=== PATIENT | female | born 1965 | race Caucasian/White ===

== ENCOUNTER 2018-06-21 09:28 | Observation (INO) | payer MEDICARE ==
[~2018-06-21] VITALS: Ht 172.7 cm; Wt 109.3 kg
[2018-06-21] MEDS ORDERED: ASPIRIN 81 MG CHEW TAB PO ONE ×2 (09:30→11:15)
[2018-06-21 10:05] LABS: BASOPHILS % 0.4 % (0.0-1.0); EOSINOPHILS % 0.9 % (0.0-6.0); HEMOGLOBIN 13.2 g/dL (12.0-16.0); LYMPHOCYTES # (AUTO) 1.4 (1.0-3.2); MEAN CORPUSCULAR HEMOGLOBIN 28.1 pg (28-32); MEAN CORPUSCULAR VOLUME 85.1 fL (81-99); MONOCYTES # (AUTO) 0.3 (0.2-0.8); MONOCYTES % 5.9 % (4.4-11.3); NEUTROPHILS # (AUTO) 2.8 (2.1-6.9); NEUTROPHILS % 62.4 % (38.7-80.0); PLATELET COUNT 182 x10e3/uL (140-360); RED CELL DISTRIBUTION WIDTH 13.4 % (11.7-14.4)
[2018-06-21 10:15] LABS: INR 0.98; PROTHROMBIN TIME 12.2 seconds (11.9-14.5)
[2018-06-21] MEDS ORDERED: NITROGLYCERIN 2% OINT 1 GM PKT TOP ONE (10:15)
[2018-06-21 10:16] LABS: PARTIAL THROMBOPLASTIN TIME 34.3 seconds (23.8-35.5)
[2018-06-21 10:26] LABS: ALBUMIN 3.9 g/dL (3.5-5.0); ANION GAP 13.3 mmol/L (8-16); CALCIUM 10.1 mg/dL (8.4-10.2); CREATININE, SERUM 1.07 mg/dL (0.57-1.11); MAGNESIUM 1.7 MG/DL (1.3-2.1); POTASSIUM 3.3 mmol/L (3.5-5.1)
--- NOTE | 2018-06-21 10:28 | Diagnostic Imaging Report ---
PROCEDURE: CHEST SINGLE (PORTABLE) COMPARISON: None. INDICATIONS: CHEST TIGHTNESS FINDINGS: LUNGS: No consolidations or edema. PLEURA: No effusions or pneumothorax. HEART \T\ MEDIASTINUM: The heart is within normal size-limits. BONES \T\ SOFT TISSUES: No acute findings. CONCLUSION: No acute thoracic abnormality. Ramin Doe D.O. Dictated by: Ramin Doe D.O. on 06/21/2018 at 10:33 Electronically approved by: Ramin Doe D.O. on 06/21/2018 at 10:33
[2018-06-21 10:32] LABS: CREATINE KINASE MB 0.9 ng/mL (0-5.0)
[2018-06-21] MEDS ORDERED: ACETAMINOPHEN 325 MG TAB PO ONE (12:00)
[2018-06-21 12:27] VITALS: BP 103/52
[2018-06-21 12:44] VITALS: BP 103/52
[2018-06-21 12:57] VITALS: BP 126/83
[2018-06-21 15:11] VITALS: BP 130/78
[2018-06-21 16:51] LABS: CHOL/HDL RATIO 3.8 (3.0-3.6)
--- NOTE | 2018-06-21 16:58 | Consultation ---
DATE OF CONSULTATION: June 21, 2018 CARDIOLOGY CONSULTATION REQUESTING PHYSICIAN: Dr. Shan Chavez. REASON FOR CONSULTATION: Chest pain. HISTORY OF PRESENT ILLNESS: This is a 52-year-old woman with history of hypertension and venous insufficiency status post right GSV ablation, who presented with complaints of elevated blood pressure and chest pain. The patient reports that she has not been taking her blood pressure medicines for some time. Two weeks ago she noticed her left leg began to swell when she was seated for a prolonged period of time. Last week she then began to experience headaches. She checked her blood pressure and found it was elevated; so, she resumed her blood pressure medications. She states her blood pressure had been running high in the 190s at home. Yesterday she then developed dull chest pain 2 to 3 out of 10 in severity that was constant, associated with shortness of breath, nausea and diaphoresis. The pain did not radiate. However, she then developed chest pressure yesterday evening that was 6 to 7 out of 10 in severity and progressively worsened overnight. She therefore presented to the ER for further evaluation. REVIEW OF SYSTEMS: Negative except as per HPI. PAST MEDICAL HISTORY 1. Hypertension. 2. Venous insufficiency. PAST SURGICAL HISTORY 1. Gastroplasty. 2. Appendectomy. 3. Tubal ligation. 4. Cholecystectomy. 5. Hysterectomy. 6. Neck and back surgery. 7. Tonsillectomy. FAMILY HISTORY: Pertinent for a mother with heart failure and atrial fibrillation. SOCIAL HISTORY: No tobacco, alcohol or illicit drugs. ALLERGIES: PLEASE SEE EMR. MEDICATIONS: Please see medication list. PHYSICAL EXAMINATION VITAL SIGNS: Temperature 97.8 degrees, pulse 64, respiratory rate 20, blood pressure 130/78, oxygen saturation 98% on room air. GENERAL: Obese woman in no acute distress. Well developed, well nourished. HEENT: Normocephalic, atraumatic. Pupils equal, no scleral icterus. NECK: Supple. No thyromegaly or cervical lymphadenopathy, no carotid bruits. LUNGS: Clear to auscultation bilaterally. No wheezes or crackles. CARDIOVASCULAR: Normal rate, regular rhythm. No murmur. Normal S1 and S2. ABDOMEN: Soft, nontender. EXTREMITIES: No edema. Palpable distal pulses. NEURO: Nonfocal exam. LABS: WBC 4.56, hemoglobin 13.2, hematocrit 40, platelets 182. Sodium 142, potassium 3.3, chloride 104, CO2 28, BUN 12, creatinine 1.07. Troponin 0.007. ELECTROCARDIOGRAM: Normal sinus rhythm. Normal ECG. ECHO: The patient's prior echocardiogram in January had normal LV size and systolic function with moderate concentric LVH and pseudonormal LV filling consistent with elevated LA pressure. Estimated RVSP was 30 mmHg assuming RA pressure of 3 mmHg. CHEST X-RAY: No acute thoracic abnormality. IMPRESSION 1. Chest pain. 2. Hypertension, uncontrolled. 3. Venous insufficiency status post right greater saphenous vein ablation. RECOMMENDATIONS: Trend cardiac enzymes. Given risk factors, ischemic evaluation is warranted with nuclear stress test. Will resume Losartan. Monitor creatinine. Thank you for this consult. We will continue to follow. Job#: [id number] EV MTDD
[2018-06-21] MEDS: ACETAMINOPHEN 325 MG TAB PO PRN ×2 (18:57→20:41)
[2018-06-21 20:00] VITALS: BP 97/60
[2018-06-21 20:59] LABS: CREATINE KINASE 82 IU/L (29-168)
[2018-06-21 21:29] VITALS: BP 97/60
[2018-06-22] VITALS (7 sets, daily range): BP systolic 119–142; BP diastolic 64–75
[2018-06-22 05:52] LABS: CREATINE KINASE 75 IU/L (29-168)
[2018-06-22 06:11] LABS: CHOL/HDL RATIO 4.4 (3.0-3.6)
[2018-06-22] MEDS ORDERED: REGADENOSON 0.4 MG/5 ML SYR IV ONE (08:10)
[2018-06-22] MEDS: ASPIRIN 81 MG ENTERIC COATED PO SCH (09:00)
[2018-06-22] MEDS ORDERED: NITROGLYCERIN 0.4 MG PATCH TOP SCH (09:00)
[2018-06-22] MEDS: LOSARTAN POTASSIUM 25 MG TAB PO SCH (09:00)
--- NOTE | 2018-06-22 12:44 | Progress Note ---
DATE: June 22, 2018 CARDIOLOGY PROGRESS NOTE SUBJECTIVE: Patient is complaining of a little chest pain and shortness of breath. She was seen for nuclear stress test. OBJECTIVE VITAL SIGNS: Temperature 97.6 degrees, pulse 57, respiratory rate 18, blood pressure 128/74, oxygen saturation 97% on room air. GENERAL: Obese woman, awake and alert, in no acute distress. LUNGS: Clear to auscultation bilaterally. No wheezes or crackles. CARDIOVASCULAR: Normal rate, regular rhythm. No murmur. Normal S1 and S2. ABDOMEN: Soft, nontender. EXTREMITIES: No edema. CARDIAC MEDICATIONS 1. Losartan 25 mg p.o. daily. 2. Aspirin 81 mg p.o. daily. LABORATORY DATA: Cholesterol 171, triglyceride 145, LDL 103, HDL 39, troponin less than 0.001. TELEMETRY: Normal sinus rhythm. IMPRESSION 1. Chest pain. 2. Hypertension. 3. Venous insufficiency, status post right great saphenous vein ablation. RECOMMENDATIONS: Patient is ruled out for myocardial infarction with serial cardiac biomarkers. Ischemic evaluation with nuclear stress test has been performed. We will review the images once they are available. Further recommendations to follow. Monitor blood pressure closely with resumption of losartan. Thank you for this consult. We will continue to follow. Job#: [id number] DIPIKA
--- NOTE | 2018-06-22 14:35 | Cardiology Report ---
DATE OF STUDY: June 22, 2018 NUCLEAR STRESS TEST INDICATIONS: Chest pain. PROCEDURE: The patient performed treadmill exercise using a Richard protocol, exercising for 3 minutes 19 seconds to stage 1 and completed an estimated workload of 4.6 metabolic equivalents (METs). The test was terminated due to fatigue. The heart rate was 65 beats per minute at rest and increased to 158 beats per minute at peak exercise, which was 93% of the maximum predicted heart rate. The rest blood pressure was 114/84 and increased to 148/91 mmHg, which is a normal response. The patient did not develop any symptoms other than fatigue during the procedure. The resting electrocardiogram demonstrated normal sinus rhythm. There were no ST segment changes consistent with myocardial ischemia. Next, myocardial perfusion imaging was performed at rest following the injection of 11 millicuries of tetrofosmin. At peak exercise, the patient was injected with 31.7 millicuries of tetrofosmin, and exercise was continued for 1 minute. Gated poststress tomographic imaging was performed. FINDINGS: The overall quality of the study is fair. Attenuation artefact is absent. The left ventricular cavity is noted to be normal size on the rest and stress studies. SPECT images demonstrate homogeneous tracer distribution throughout the myocardium. Gated SPECT imaging reveals normal myocardial thickening and wall motion. Left ventricular ejection fraction was calculated to be greater than 70%. Next, myocardial perfusion imaging is normal. Overall left ventricular systolic function was normal without regional wall motion abnormalities. Job#: [id number] EV cc:GRECIA MAYO MD
[2018-06-22] MEDS: ACETAMINOPHEN 325 MG TAB PO PRN (20:25)
[2018-06-23] VITALS: BP 128/84
[2018-06-23 04:00] VITALS: BP 129/65
[2018-06-23] MEDS: ACETAMINOPHEN 325 MG TAB PO PRN (04:38)
[2018-06-23 08:00] VITALS: BP 121/69
[2018-06-23 08:32] VITALS: BP 121/69
[2018-06-23] MEDS: ASPIRIN 81 MG ENTERIC COATED PO SCH (09:08)
[2018-06-23] MEDS: LOSARTAN POTASSIUM 25 MG TAB PO SCH (09:08)
--- NOTE | 2018-06-23 11:22 | Diagnostic Imaging Report ---
EXAMINATION: CHEST SINGLE (PORTABLE) INDICATION: CP and SOB COMPARISON: 06/21/18. FINDINGS: TUBES and LINES: None. LUNGS: Mild bibasilar subsegmental atelectasis. There is no evidence of pneumonia or pulmonary edema. PLEURA: No pleural effusion or pneumothorax. HEART AND MEDIASTINUM: The cardiomediastinal silhouette is unremarkable. BONES AND SOFT TISSUES: No acute osseous lesion. No cervical fusion hardware. UPPER ABDOMEN: No free air under the diaphragm. IMPRESSION: No acute thoracic abnormality. Signed by: Dr. Elena Mike M.D. on 06/23/2018 11:19 AM
[2018-06-23 11:28] LABS: BASOPHILS % 0.4 % (0.0-1.0); EOSINOPHILS % 0.5 % (0.0-6.0); HEMATOCRIT 37.4 % (34.2-44.1); HEMOGLOBIN 12.4 g/dL (12.0-16.0); LYMPHOCYTES # (AUTO) 1.5 (1.0-3.2); LYMPHOCYTES % 27.5 % (18.0-39.1); MEAN CORPUSCULAR HEMOGLOBIN 28.1 pg (28-32); MEAN CORPUSCULAR HGB CONC 33.2 g/dL (31-35); MEAN CORPUSCULAR VOLUME 84.8 fL (81-99); MONOCYTES # (AUTO) 0.4 (0.2-0.8); MONOCYTES % 6.3 % (4.4-11.3); NEUTROPHILS # (AUTO) 3.6 (2.1-6.9); NEUTROPHILS % 64.9 % (38.7-80.0); PLATELET COUNT 181 x10e3/uL (140-360); RED BLOOD COUNT 4.41 x10e6/uL (3.6-5.1); RED CELL DISTRIBUTION WIDTH 13.2 % (11.7-14.4)
[2018-06-23 11:32] VITALS: BP 135/71
[2018-06-23 11:33] VITALS: BP 135/71
[2018-06-23 11:47] LABS: ALANINE AMINOTRANSFERASE 17 IU/L (0-55); ALBUMIN 3.7 g/dL (3.5-5.0); ALBUMIN/GLOBULIN RATIO 1.1 (0.8-2.0); ALKALINE PHOSPHATASE 59 IU/L (40-150); BLOOD UREA NITROGEN 8 mg/dL (7-26); BUN/CREATININE RATIO 9 (6-25); CALCIUM 9.6 mg/dL (8.4-10.2); CARBON DIOXIDE 30 mmol/L (22-29); CHLORIDE 102 mmol/L (98-107); CREATININE, SERUM 0.93 mg/dL (0.57-1.11); EST GLOMERULAR FILTRATION RATE > 60 ML/MIN (60-); GLUCOSE 95 mg/dL (74-118); SODIUM 141 mmol/L (136-145)
[2018-06-23] MEDS ORDERED: LOSARTAN POTASS25 MG PO (13:45)
--- NOTE | 2018-06-24 04:52 | Progress Note ---
DATE: June 23, 2018 CARDIOLOGY PROGRESS NOTE SUBJECTIVE: Patient endorses some occasional chest pain, substernal and radiating to her right and some occasional shortness of breath. Denies any fever this morning. However, had fever. T-max of 101.6 last evening. CARDIOVASCULAR MEDICATIONS 1. Aspirin 81 mg. 2. Losartan 25 mg p.o. daily. LABS: No labs this morning. PHYSICAL EXAMINATION GENERAL: Alert and oriented times 3. Resting comfortably in bed. Does not appear to be in acute distress at this time. Undergoing echocardiogram this morning. LUNGS: Diminished breath sounds throughout right lower and right upper lobe. Otherwise clear to auscultation. No wheezing, rhonchi or crackles. CARDIOVASCULAR: Regular rate and rhythm. Normal S1 and S2. No S3 or S4 is auscultated. No gallop. No murmurs. ABDOMEN: Round, soft and nontender. EXTREMITIES: Lower extremities with 2+ pedal pulses. IMPRESSION 1. Atypical chest pain. 2. Hypertension. 3. Venous insufficiency, status post right greater saphenous vein ablation. RECOMMENDATIONS: With known fever from yesterday and also diminished breath sounds this morning, go ahead and repeat a chest x-ray this morning. Stress test yesterday was negative. Echocardiogram being completed this morning. Continue to monitor this patient. Monitor for reoccurrence of fever. Consider blood cultures if fevers are to continue. Will monitor this patient very closely. DICTATED BY WONG DAWKINS NP Job#: [id number] [place]
== END 2018-06-23 14:49 | disposition home or self-care (01) ==
LOC: ER 09:28 → ERHOLD 11:08 → IMCU 12:12
DX: R07.89 Other chest pain (principal); I10 Essential (primary) hypertension; I73.9 Peripheral vascular disease, unspecified; K21.9 Gastro-esophageal reflux disease without esophagitis; R50.9 Fever, unspecified
CPT/HCPCS: 36415 ×3; 71045 ×2; 78452; 80053 ×2; 80061 ×2; 82550 ×2; 82553 ×2; 83735; 84484 ×2; 85025 ×2; 85610; 85730; 93005; 93017; 93306; 99284; A9502; G0378 ×3

== ENCOUNTER 2018-11-03 16:01 | Emergency (ER) | payer MEDICARE ==
[~2018-11-03] VITALS: Ht 172.7 cm; Wt 113.4 kg
[~2018-11-03 16:01] MED LIST: LOSARTAN POTASS25 MG PO
--- OUTSIDE RECORDS SUMMARY | 2018-11-03 16:04 | XMS REPORT | Clinical Summary ---
Author Author [facility] Organization [facility] Address Unknown Phone Unavailable Care Team Providers Care Mechanical Technologist Name Role Phone Asked, No Pcp PCP Unavailable Allergies Comments Active Allergy Reactions Severity Noted Date Redness on face Sulfa (Sulfonamide 02/20/2018 Antibiotics) Medications End Date Status Medication Sig Dispensed Refills Start Date Active levocetirizine (XYZAL) 5 Take 5 mg by 0 MG tablet mouth nightly. Active rizatriptan (MAXALT) 10 Take 10 mg by 0 MG tablet mouth daily as needed for migraine. May repeat in 2 hours if unresolved. Do not exceed 30 mg in 24 hours. Active losartan-hydrochlorothiaz Take 1 tablet 0 ezio (HYZAAR) 50-12.5 mg by mouth per tablet daily. Active temazepam (RESTORIL) 30 Take 30 mg by 0 mg capsule mouth nightly. 02/26/2018 levoFLOXacin (LEVAQUIN) Take 500 mg 0 500 MG tablet by mouth 2 8 (two) times a day. For 10 days 02/16/18-02/1103/02/2018 doxycycline (VIBRAMYCIN) Take 1 20 capsule 0 100 MG capsule capsule (100 8 mg total) by mouth 2 (two) times a day for 10 days. 03/22/2018 lidocaine Insert 1 1 Tube 1 HCl-hydrocortison ac 2-2 application 8 % cream into the rectum every 4 (four) hours as needed (for pain) for up to 30 days. 03/19/2018 metroNIDAZOLE (FLAGYL) Take 1 tablet 21 tablet 0 250 MG tablet (250 mg 8 total) by mouth 3 (three) times a day for 7 days. Active Problems Not on file Encounters Care Team Description Date Type Specialty Dominique Spencer MA 03/12/2018 Orders Only Obstetrics and Gynecology Dave Arellano MD Pelvic pain (Primary Dx); Screening mammogram, encounter for; Screening for rectal cancer 03/05/2018 Office Visit Obstetrics and Gynecology El Hager MD Infective urethritis (Primary Dx); Pelvic infection in female 02/20/2018 Emergency Emergency Medicine after 11/02/2017 Family History Medical History Relation Name Comments Liver disease Father Relation Name Status Comments Father Social History Date Tobacco Use Types Packs/Day Years Used Never Smoker Smokeless Tobacco: Never Used Alcohol Use Drinks/Week oz/Week Comments No Sex Assigned at Date Recorded Not on file Industry Job Start Date Occupation Not on file Not on file Not on file Travel End Travel History Travel Start No recent travel history available. Last Filed Vital Signs Time Taken Vital Sign Reading 03/05/2018 4:28 PM CDT Blood Pressure 142/94 02/20/2018 2:09 PM CDT Pulse 62 02/20/2018 10:58 AM CDT Temperature 36.7 C (98 F) 02/20/2018 2:09 PM CDT Respiratory Rate 18 02/20/2018 2:09 PM CDT Oxygen Saturation 99% - Inhaled Oxygen - Concentration 03/05/2018 4:28 PM CDT Weight 104 kg (230 lb) 03/05/2018 4:28 PM CDT Height 172.7 cm (5' 8") 03/05/2018 4:28 PM CDT Body Mass Index 34.97 Plan of Treatment Health Maintenance Due Date Last Done Comments CERVICAL CANCER SCREENING 1988 BREAST CANCER SCREENING 2017 SHINGLES VACCINES (1 of 2017 2) INFLUENZA VACCINE 06/13/2018 COLON CANCER SCREENING 03/05/2028 03/05/2018 Procedures Comments Procedure Name Priority Date/Time Associated Diagnosis NUSWAB VAGINITIS PLUS Routine 03/06/2018 Pelvic pain (VG+) 6:54 AM CDT GYNECOLOGIC PAP TEST Routine 03/06/2018 Pelvic pain (IMAGE-GUIDED), 6:40 AM CDT LIQUID-BASED PREPARATION AND HUMAN PAPILLOMAVIRUS (HPV) (APTIMA) OCCULT BLOOD, STOOL Routine 03/05/2018 Screening for rectal 4:36 PM CDT cancer MICROSCOPIC EXAMINATION Routine 03/05/2018 4:34 PM CDT URINALYSIS, COMPLETE, Routine 03/05/2018 Pelvic pain WITH REFLEX TO CULTURE 4:34 PM CDT ED REFERRAL TO [place] [place] Routine 02/20/2018 MANDAEISM PHYSICIAN 3:[address] RENAL STONE PROTOCOL STAT 02/20/2018 1:44 PM CDT URINE CULTURE STAT 02/20/2018 12:21 PM CDT GRAM STAIN STAT 02/20/2018 12:21 PM CDT ZZESTIMATED GFR STAT 02/20/2018 12:04 PM CDT LACTIC ACID LEVEL, SEPSIS STAT 02/20/2018 - NOW AND REPEAT 2X EVERY 12:04 PM CDT 3 HOURS MAGNESIUM LEVEL STAT 02/20/2018 12:04 PM CDT C-REACTIVE PROTEIN STAT 02/20/2018 12:04 PM CDT COMPREHENSIVE METABOLIC STAT 02/20/2018 PANEL 12:04 PM CDT URINALYSIS SCREEN AND STAT 02/20/2018 MICROSCOPY, WITH REFLEX 12:04 PM CDT TO CULTURE HC COMPLETE BLD COUNT STAT 02/20/2018 W/AUTO DIFF 12:04 PM CDT after 11/02/2017 Results * NuSwab Vaginitis Plus (VG+) (03/06/2018 6:54 AM CDT) Atopobium vaginae High - 2 (A) Score [facility] BVAB 2 Low - 0 Score [facility] Megasphaera species Low - 0 Score [facility] Comment: Calculate total score by adding the 3 individual bacterial vaginosis (BV) marker scores together.Total score is interpreted as follows: Total score 0-1: Indicates the absence of BV. Total score 2: Indeterminate for BV. Additional clinical data should be evaluated to establish a diagnosis. Total score 3-6: Indicates the presence of BV. This test was developed and its performance characteristics determined by [facility].It has not been cleared or approved by the Food and Drug Administration.The FDA has determined that such clearance or approval is not necessary. Polina albicans, JOANIE Negative Negative [facility] C. glabrata, DNA Negative Negative [facility] Comment: This test was developed and its performance characteristics determined by [facility].It has not been cleared or approved by the Food and Drug Administration.The FDA has determined that such clearance or approval is not necessary. Trichomonas vag by JOANIE Positive (A) Negative [facility] Chlamydia trachomatis, Negative Negative [facility] JOANIE Neisseria gonorrhoeae, Negative Negative [facility] JOANIE Specimen Swab Narrative Performed At Performed at: - [facility] [place] [facility] [address] [place], [id number] Machine Sign Writer: Jermaine Vance MD, Phone:[phone] Performing Organization Address City/State/Zipcode Phone Number [facility] * Gynecologic Pap Test (Image-guided), Liquid-based Preparation and Human Papillomavirus (HPV) (Aptima) (03/06/2018 6:40 AM CDT) Diagnosis CommentComment: NEGATIVE FOR [facility] INTRAEPITHELIAL LESION AND MALIGNANCY. Specimen adequacy Comment [facility] Comment: Satisfactory for evaluation.Endocervical and/or squamous metaplastic cells (endocervical component) are present. Clinician provided ICD10 CommentComment: R10.2 [facility] Performed by: CommentComment: Moe Greene, [employer]er [employer] (ASCP) Comment . [facility] Note: Comment [facility] Comment: The Pap smear is a screening test designed to aid in the detection of premalignant and malignant conditions of the uterine cervix.It is not a diagnostic procedure and should not be used as the sole means of detecting cervical cancer.Both false-positive and false-negative reports do occur. Test methodology Comment [facility] Comment: This liquid based ThinPrep(R) pap test was screened with the use of an image guided system. HPV Aptima Negative Negative [facility] 02 Comment: This test detects fourteen high-risk HPV types (16/18/31/33/35/39/45/ 51/52/56/58/59/66/68) without differentiation. Specimen Swab Narrative Performed At Performed at: - [facility] [place] [facility] [address] [facility], [id number] Machine Sign Writer: Macie Mcelroy MD, Phone:[phone] Performed at: [facility] [id number] [facility], [id number] Machine Sign Writer: Macie Mcelroy MD, Phone:[phone] Specimen Comment: Source.............Cervix;Endocervix Specimen Comment: No. of containers..01 ThinPrep Vial Performing Organization Address [facility] Phone Number [facility] 02 * Occult blood, stool (03/05/2018 4:36 PM CDT) Occult blood, stool Negative Negative [facility] Specimen Stool Narrative Performed At Performed at: [id number] Machine Sign Writer: Tommy Nunes MD, Phone:[phone] Performing Organization Address [facility] Phone Number [facility] * URINALYSIS, COMPLETE, WITH REFLEX TO CULTURE (03/05/2018 4:34 PM CDT) Specific gravity, urine 1.017 1.005 - 1.030 [facility] pH, urine 6.0 5.0 - 7.5 [facility] Color, UA Yellow Yellow [facility] Appearance Clear Clear [facility] WBC esterase, urine Negative Negative [facility] Protein, UA Negative Negative/Trace [facility] Glucose, urine Negative Negative [facility] Ketones, UA Negative Negative [facility] Occult blood, urine Negative Negative [facility] Bilirubin, UA Negative Negative [facility] Urobilinogen, UA 0.2 0.2 - 1.0 mg/dL [facility] Nitrite, UA Negative Negative [facility] Microscopic examination CommentComment: Microscopic [facility] follows if indicated. Microscopic examination See below:Comment: Microscopic [facility] was indicated and was performed. Urinalysis reflex CommentComment: This specimen [facility] will not reflex to a Urine Culture. Narrative Performed At Performed at: - [id number] Machine Sign Writer: Tommy Nunes MD, Phone:[phone] Performing Organization Address [facility] Phone Number [facility] * Microscopic Examination (03/05/2018 4:34 PM CDT) WBC, UA 0-5 0 - 5 /hpf [facility] RBC, UA 0-2 0 - 2 /hpf [facility] Epithelial cells (non 0-10 0 - 10 /hpf [facility] renal) Mucus, UA Present Not Estab. [facility] Bacteria, UA None seen None seen/Few [facility] Narrative Performed At Performed at:01 - [facility] [address] [facility], [id number] Machine Sign Writer: Tommy Nunes MD, Phone:[phone] Performing Organization Address City/State/Zipcode Phone Number [facility] * CT Renal Stone Protocol (02/20/2018 1:44 PM CDT) Narrative Performed At EXAMINATION:CT RENAL STONE PROTOCOL HM RADIANT CLINICAL HISTORY: 52 years FemaleFLANK PAINRECURRENT STONE DISEASE SUSPECTED COMPARISON:01/30/2017 TECHNIQUE:CT of the abdomen and pelvis without intravenous contrast. Absence of intravenous contrast decreases sensitivity for detection of focal lesions and vascular pathology. CT imaging was performed with iterative reconstruction techniques and/or automated exposure control to reduce radiation dose. FINDINGS: LOWER THORAX: 1. There is a 2 mm nodule within each lung base, stable. May represent small intrapulmonary lymph node and/or noncalcified granulomas. Small pericardial effusion is stable. ABDOMEN: 1.There are five small nonobstructing calyceal stones within the right kidney, largest measures 2 to 3 mm. There is no obstructing stone or hydronephrosis on the right. 2.There is a 2 mm nonobstructing calyceal stone in the lower pole of the left kidney. There is no obstructing stone or hydronephrosis on the left. 3.Calcified hepatic granuloma. Cholecystectomy. There is also a calcified splenic granuloma. The adrenal glands and pancreas are unremarkable. 4.Absence of oral contrast decreases sensitivity for detection of bowel pathology. There are a few colonic diverticula without CT evidence of diverticulitis. The appendix is not identified, but there is no pericecal inflammatory change. No bowel obstruction. Postsurgical changes within the stomach. 5.Abdominal aorta is nonaneurysmal. There is no abdominal adenopathy or ascites. No free air. PELVIS: 1.The uterus is absent. There is no pelvic mass or fluid. No pelvic adenopathy. 2.Degenerative changes in the spine and hips. IMPRESSION: 1.Nonobstructing calyceal stones, right much greater than left. No obstructing ureteral calculus or hydronephrosis. 2.Status post cholecystectomy, hysterectomy and gastric surgery. 3.Additional findings as above. [facility]-[id number] Procedure Note Interface, Radiology Results Incoming - 02/20/2018 2:02 PM CDT EXAMINATION: CT RENAL STONE PROTOCOL CLINICAL HISTORY: 52 years Female FLANK PAIN RECURRENT STONE DISEASE SUSPECTED COMPARISON: 01/30/2017 TECHNIQUE: CT of the abdomen and pelvis without intravenous contrast. Absence of intravenous contrast decreases sensitivity for detection of focal lesions and vascular pathology. CT imaging was performed with iterative reconstruction techniques and/or automated exposure control to reduce radiation dose. FINDINGS: LOWER THORAX: 1. There is a 2 mm nodule within each lung base, stable. May represent small intrapulmonary lymph node and/or noncalcified granulomas. Small pericardial effusion is stable. ABDOMEN: 1. There are five small nonobstructing calyceal stones within the right kidney, largest measures 2 to 3 mm. There is no obstructing stone or hydronephrosis on the right. 2. There is a 2 mm nonobstructing calyceal stone in the lower pole of the left kidney. There is no obstructing stone or hydronephrosis on the left. 3. Calcified hepatic granuloma. Cholecystectomy. There is also a calcified splenic granuloma. The adrenal glands and pancreas are unremarkable. 4. Absence of oral contrast decreases sensitivity for detection of bowel pathology. There are a few colonic diverticula without CT evidence of diverticulitis. The appendix is not identified, but there is no pericecal inflammatory change. No bowel obstruction. Postsurgical changes within the stomach. 5. Abdominal aorta is nonaneurysmal. There is no abdominal adenopathy or ascites. No free air. PELVIS: 1. The uterus is absent. There is no pelvic mass or fluid. No pelvic adenopathy. 2. Degenerative changes in the spine and hips. IMPRESSION: 1. Nonobstructing calyceal stones, right much greater than left. No obstructing ureteral calculus or hydronephrosis. 2. Status post cholecystectomy, hysterectomy and gastric surgery. 3. Additional findings as above. [facility]-[id number] Performing Organization Address City/State/Zipcode Phone Number [facility] [address] [place] [address] * Gram stain (02/20/2018 12:21 PM CDT) Gram stain result Few WBC's [facility] DEPARTMENT OF Occasional Gram negative rods PATHOLOGY AND Comment: GENOMIC MEDICINE Specimen Information Specimen Source: Urine Specimen Site: Clean catch Specimen Urine Performing Organization Address City/[facility]/Zipcode Phone Number [facility] DEPARTMENT OF [address] [place] [address] PATHOLOGY AND GENOMIC MEDICINE * Urine culture (02/20/2018 12:21 PM CDT) Urine culture isolate Gram positive cindy [facility] DEPARTMENT OF <10-1 cfu/ml PATHOLOGY AND (A) GENOMIC MEDICINE Comment: Specimen Information Specimen Source: Urine Specimen Site: Clean catch Specimen Urine Performing Organization Address City/[facility]/Zipcode Phone Number [facility] DEPARTMENT OF [address] [place] [address] PATHOLOGY AND GENOMIC MEDICINE * Urinalysis screen and microscopy, with reflex to culture (02/20/2018 12:04 PM CDT) Specimen site Clean catch [facility] DEPARTMENT OF PATHOLOGY AND GENOMIC MEDICINE Color, UA Yellow [facility] DEPARTMENT OF PATHOLOGY AND GENOMIC MEDICINE Appearance, UA Clear [facility] DEPARTMENT OF PATHOLOGY AND GENOMIC MEDICINE Specific gravity, UA 1.015 1.001 - 1.035 [facility] DEPARTMENT OF PATHOLOGY AND GENOMIC MEDICINE pH, UA 6.0 5.0 - 8.5 [facility] DEPARTMENT OF PATHOLOGY AND GENOMIC MEDICINE Protein, UA 1+ (A) Negative [facility] DEPARTMENT OF PATHOLOGY AND GENOMIC MEDICINE Glucose, UA Negative Negative [facility] DEPARTMENT OF PATHOLOGY AND GENOMIC MEDICINE Ketones, UA Negative Negative [facility] DEPARTMENT OF PATHOLOGY AND GENOMIC MEDICINE Bilirubin, UA Negative Negative [facility] DEPARTMENT OF PATHOLOGY AND GENOMIC MEDICINE Blood, UA Negative Negative [facility] DEPARTMENT OF PATHOLOGY AND GENOMIC MEDICINE Nitrite, UA Negative Negative [facility] DEPARTMENT OF PATHOLOGY AND GENOMIC MEDICINE Urobilinogen, UA <2.0 <2.0 [facility] DEPARTMENT OF PATHOLOGY AND GENOMIC MEDICINE Leukocyte esterase, UA Large (A) Negative [facility] DEPARTMENT OF PATHOLOGY AND GENOMIC MEDICINE Epithelial cells, UA 5 /HPF [facility] DEPARTMENT OF PATHOLOGY AND GENOMIC MEDICINE WBC, UA 42 (H) 0 - 4 /HPF [facility] DEPARTMENT OF PATHOLOGY AND GENOMIC MEDICINE RBC, UA 4 0 - 5 /HPF [facility] DEPARTMENT OF PATHOLOGY AND GENOMIC MEDICINE Bacteria, UA None seen None seen [facility] DEPARTMENT OF PATHOLOGY AND GENOMIC MEDICINE Yeast, UA None seen [facility] DEPARTMENT OF PATHOLOGY AND GENOMIC MEDICINE Yeast with pseudohyphae, None seen [facility] DEPARTMENT OF UA PATHOLOGY AND GENOMIC MEDICINE Hyaline casts, UA >20 (A) /LPF [facility] DEPARTMENT OF PATHOLOGY AND GENOMIC MEDICINE Specimen Urine Performing Organization Address City/[facility]/[place] [address] PATHOLOGY AND GENOMIC MEDICINE * Lactic acid level, SEPSIS - Now and repeat 2x every 3 hours (02/20/2018 12:04 PM CDT) Lactic acid 2.1 0.5 - 2.2 mmol/L [facility] DEPARTMENT OF PATHOLOGY AND GENOMIC MEDICINE Specimen Plasma specimen Performing Organization Address City/[facility] [place] [address] PATHOLOGY AND GENOMIC MEDICINE * Estimated GFR (02/20/2018 12:04 PM CDT) GFR Non Af Amer 43 (A) mL/min/1.73 m2 [facility] DEPARTMENT OF PATHOLOGY AND GENOMIC MEDICINE GFR Af Amer 53 (A) mL/min/1.73 m2 [facility] DEPARTMENT OF Comment: PATHOLOGY AND Chronic kidney disease: <60 GENOMIC MEDICINE mL/min/1.73m2 Kidney failure: <15 mL/min/1.73m2 The estimated GFR is calculated from the IDMS-traceable Modification of Diet in Renal Disease Equation. The accuracy of the calculation is poor when the creatinine is normal. Calculated values >90 mL/min/1.73m2 are not reported. This equation has not been validated in children (<18 years), women, the elderly (>70 years), or ethnic groups other than Caucasians and Americans. Specimen Plasma specimen Performing Organization Address [facility] [place] [address] PATHOLOGY AND GENOMIC MEDICINE * CBC with platelet and differential (02/20/2018 12:04 PM CDT) WBC 5.09 4.50 - 11.00 k/uL [facility] DEPARTMENT OF PATHOLOGY AND GENOMIC MEDICINE RBC 4.68 4.20 - 5.50 m/uL [facility] DEPARTMENT OF PATHOLOGY AND GENOMIC MEDICINE HGB 13.2 12.0 - 16.0 g/dL [facility] DEPARTMENT OF PATHOLOGY AND GENOMIC MEDICINE HCT 40.1 37.0 - 47.0 % [facility] DEPARTMENT OF PATHOLOGY AND GENOMIC MEDICINE MCV 85.7 82.0 - 100.0 fL [facility] DEPARTMENT OF PATHOLOGY AND GENOMIC MEDICINE MCH 28.2 27.0 - 34.0 pg [facility] DEPARTMENT OF PATHOLOGY AND GENOMIC MEDICINE MCHC 32.9 31.0 - 37.0 g/dL [facility] DEPARTMENT OF PATHOLOGY AND GENOMIC MEDICINE RDW - SD 41.1 37.0 - 55.0 fL [facility] DEPARTMENT OF PATHOLOGY AND GENOMIC MEDICINE MPV 10.4 8.8 - 13.2 fL [facility] DEPARTMENT OF PATHOLOGY AND GENOMIC MEDICINE Platelet count 182 150 - 400 k/uL [facility] DEPARTMENT OF PATHOLOGY AND GENOMIC MEDICINE Nucleated RBC 0.00 /100 WBC [facility] DEPARTMENT OF PATHOLOGY AND GENOMIC MEDICINE Neutrophils 64.8 39.0 - 69.0 % [facility] DEPARTMENT OF PATHOLOGY AND GENOMIC MEDICINE Lymphocytes 28.5 25.0 - 45.0 % [facility] DEPARTMENT OF PATHOLOGY AND GENOMIC MEDICINE Monocytes 5.7 0.0 - 10.0 % [facility] DEPARTMENT OF PATHOLOGY AND GENOMIC MEDICINE Eosinophils 0.4 0.0 - 5.0 % [facility] DEPARTMENT OF PATHOLOGY AND GENOMIC MEDICINE Basophils 0.4 0.0 - 1.0 % [facility] DEPARTMENT OF PATHOLOGY AND GENOMIC MEDICINE Immature granulocytes 0.2Comment: "Immature 0.0 - 1.0 % [facility] DEPARTMENT OF granulocytes" (promyelocytes, PATHOLOGY AND myelocytes, metamyelocytes) GENOMIC MEDICINE Specimen Blood Performing Organization Address City/[facility] [place] [address] PATHOLOGY AND GENOMIC MEDICINE * C-reactive protein (02/20/2018 12:04 PM CDT) CRP <0.30 0.00 - 0.50 mg/dL [facility] DEPARTMENT OF PATHOLOGY AND GENOMIC MEDICINE Specimen Plasma specimen Performing Organization Address City/[facility] [place] [address] PATHOLOGY AND GENOMIC MEDICINE * Magnesium level (02/20/2018 12:04 PM CDT) Magnesium 2.0 1.6 - 2.6 mg/dL [facility] DEPARTMENT OF PATHOLOGY AND GENOMIC MEDICINE Specimen Plasma specimen Performing Organization Address City/[facility] [address] PATHOLOGY AND GENOMIC MEDICINE * Comprehensive metabolic panel (02/20/2018 12:04 PM CDT) Sodium 142 135 - 148 mEq/L [facility] DEPARTMENT OF PATHOLOGY AND GENOMIC MEDICINE Potassium 4.3 3.5 - 5.0 mEq/L [facility] DEPARTMENT OF PATHOLOGY AND GENOMIC MEDICINE Chloride 100 98 - 112 mEq/L [facility] DEPARTMENT OF PATHOLOGY AND GENOMIC MEDICINE CO2 30 24 - 31 mEq/L [facility] DEPARTMENT OF PATHOLOGY AND GENOMIC MEDICINE Anion gap 12 7 - 15 mEq/L [facility] DEPARTMENT OF Comment: PATHOLOGY AND Starting from February GENOMIC MEDICINE , anion gap calculation no longer incorporates potassium. Please note the change. BUN 12 6 - 20 mg/dL [facility] DEPARTMENT OF PATHOLOGY AND GENOMIC MEDICINE Creatinine 1.3 (H) 0.5 - 0.9 mg/dL [facility] DEPARTMENT OF PATHOLOGY AND GENOMIC MEDICINE Glucose 92 65 - 99 mg/dL [facility] DEPARTMENT OF PATHOLOGY AND GENOMIC MEDICINE Calcium 10.2 8.3 - 10.2 mg/dL [facility] DEPARTMENT OF PATHOLOGY AND GENOMIC MEDICINE Protein 8.0 6.3 - 8.3 g/dL [facility] DEPARTMENT OF Comment: PATHOLOGY AND [place] GENOMIC MEDICINE 4.6-7.0 g/dL 1 week 4.4-7.6 g/dL 7 months-1year 5.1-7.3 g/dL 1-2 years5.6-7 .5 g/dL >3 years6.0-8 .0 g/dL 18-150 6.3-8.3 g/dL Albumin 3.9 3.5 - 5.0 g/dL [facility] DEPARTMENT OF PATHOLOGY AND GENOMIC MEDICINE A/G ratio 1.0 0.7 - 3.8 [facility] DEPARTMENT OF PATHOLOGY AND GENOMIC MEDICINE Alkaline phosphatase 69 35 - 104 U/L [facility] DEPARTMENT OF PATHOLOGY AND GENOMIC MEDICINE AST 20 10 - 35 U/L [facility] DEPARTMENT OF PATHOLOGY AND GENOMIC MEDICINE ALT 16 5 - 50 U/L [facility] DEPARTMENT OF PATHOLOGY AND GENOMIC MEDICINE Total bilirubin 0.5 0.0 - 1.2 mg/dL [facility] DEPARTMENT OF PATHOLOGY AND GENOMIC MEDICINE Specimen Plasma specimen Performing Organization Address City/State/Zipcode Phone Number [facility] DEPARTMENT OF [address] [place] [address] PATHOLOGY AND GENOMIC MEDICINE after 11/02/2017 Insurance Payer Benefit Subscriber ID Type Phone Address Plan / Group [facility] MEDICARE AARP xxxxxxxxx [facility] MEDICARE COMPLETE MCR Advance Directives Patient has advance care planning documents on file. For more information, migdalia clark contact: Angel [address] [place] [address]
--- NOTE | 2018-11-03 16:45 | NUR ---
[facility] notified of need for venous doppler.
[2018-11-03] MEDS ORDERED: ONDANSETRON HCL 4 MG ORAL DISINTEGRATING TAB PO ONE (17:00)
[2018-11-03] MEDS ORDERED: HYDROCODONE/APAP 10MG-325MG TAB PO ONE (17:00)
--- NOTE | 2018-11-03 17:37 | NUR ---
Doppler at bedside at this time.
[2018-11-03 18:13] VITALS: BP 167/91
== END 2018-11-03 18:16 | disposition home or self-care (01) ==
LOC: ER 16:01
DX: S76.312A Strain of muscle, fascia and tendon of the posterior muscle group at thigh level, left thigh, initial encounter (principal); I10 Essential (primary) hypertension; M06.9 Rheumatoid arthritis, unspecified; Z88.2 Allergy status to sulfonamides
CPT/HCPCS: 93971; 99283; Q0162